=== PATIENT | female | born 1985 ===

== ENCOUNTER 2016-10-03 17:18 | Outpatient (CLI) | payer MEDICAID ==
[2016-10-03 17:56] VITALS: BMI 35.0
== END 2016-10-03 18:41 | disposition home or self-care (01) ==
LOC: FBCOUT 17:18 → FBC 17:20 → FBCOUT 18:41
PROVIDERS: ATTEND Family Medicine
DX: O47.1 False labor at or after 37 completed weeks of gestation (principal); Z3A.38 38 weeks gestation of pregnancy
CPT/HCPCS: 59025; G0463